=== PATIENT | female | born 1985 | race Caucasian/White ===

== ENCOUNTER 2016-09-06 08:50 | Outpatient (CLI) | payer MEDICAID | END 2016-09-06 08:51 | disposition home or self-care (01) | DX: Z79.899 Other long term (current) drug therapy (principal) ==

== ENCOUNTER 2017-02-10 11:15 | Outpatient (CLI) | payer MEDICAID ==
[2017-02-10 18:44] LABS: ALBUMIN/GLOBULIN RATIO 1.6 (1.0-2.2); BUN - BLOOD UREA NITROGEN 10 mg/dL (6-20); CALCIUM 9.4 mg/dL (8.5-10.3); CARBON DIOXIDE - CO2 22 mmol/L (21-32); CHLORIDE 107 mmol/L (101-111); CREATININE 0.9 mg/dL (0.4-1.0); GFR - MDRD 74 (>89); GLUCOSE 91 mg/dL (70-100); POTASSIUM 4.1 mmol/L (3.5-5.0); SODIUM 138 mmol/L (135-145); TOTAL PROTEIN 7.3 g/dL (6.7-8.2)
== END 2017-02-10 11:16 | disposition home or self-care (01) ==
LOC: LAB.F 11:15
PROVIDERS: ATTEND Nurse Practitioner Family
DX: F31.9 Bipolar disorder, unspecified (principal)
CPT/HCPCS: 36415; 80053; 84443

== ENCOUNTER 2017-03-13 10:52 | Outpatient (CLI) | payer MEDICAID ==
--- NOTE | 2017-03-13 13:41 | XRAY Report ---
THREE-VIEW RIGHT FOOT: 03/13/2017 CLINICAL INDICATION: Fracture. FINDINGS: AP, lateral, oblique views of the right foot demonstrate a dorsal avulsion fracture likely arising from the medial cuneiform. No other fracture is appreciated. The joint spaces are preserve d. IMPRESSION: DORSAL AVULSION FRAGMENT, LIKELY ARISING FROM THE MEDIAL CUNEIFORM. JOB #: [id number] EXT JOB #:[id number]
== END 2017-03-13 10:53 | disposition home or self-care (01) ==
LOC: DI.S 10:52
PROVIDERS: ATTEND Nurse Practitioner Family
DX: S92.101A Unspecified fracture of right talus, initial encounter for closed fracture (principal)